=== PATIENT | male | born 1930 | race Caucasian/White ===

== ENCOUNTER 2018-04-18 10:18 | Inpatient (IN) | payer OTHER ==
[~2018-04-18] VITALS: Ht 198.1 cm; Wt 106.6 kg
[2018-04-18] VITALS (7 sets, daily range): BP systolic 107–167
[~2018-04-18 10:18] MED LIST: AMLO5TAB4 PO; LEVO500T20 PO; PRAV40TA63 PO
[2018-04-18] MEDS ORDERED: NACL 0.9% 1,000 ML IV ONE (10:35)
--- NOTE | 2018-04-18 10:35 | NUR ---
Patient brought in by family for c/c of shortness of breath and cough. Per patient, cough started on Thursday and worsening overnight. Patient has wheezes bilaterally. Patient able to speak in 5-6 word sentences. Patients at bedside. Patient able to sit calmly. Patient has +2 peripheral pulses on all extremities. Patients skin warm to touch, afebrile at this time. Will continue to follow up and monitor patient for changes in status.
--- NOTE | 2018-04-18 10:35 | NUR ---
Patient to ER bed 2 to gown for evaluation. Side rails up. Report given to Magy DECKER
--- NOTE | 2018-04-18 10:35 | NUR ---
ER at bedside examining patient.
[2018-04-18] MEDS ORDERED: IPRATROPIUM BROM 0.5 MG/2.5 ML VIAL.NEB (ATROVENT) IH ONE (10:45)
[2018-04-18] MEDS ORDERED: ALBUTEROL SULFATE 0.083% 2.5 MG/3 ML VIAL.NEB IH ONE (10:45)
[2018-04-18] MEDS ORDERED: MAGNESIUM SULFATE 50 ML IV ONE (10:45)
[2018-04-18] MEDS ORDERED: NS 1000 ML IV.SOLN IV ONE (10:45)
[2018-04-18] MEDS ORDERED: ASPIRIN 81 MG TAB.CHEW PO ONE (10:45)
--- NOTE | 2018-04-18 10:54 | NUR ---
RT at bedside for breathing treatment.
[2018-04-18 11:03] LABS: HEMOGLOBIN 13.7 g/dL (14.0-18.0); MEAN CORPUSCULAR HEMOGLOBIN 29 pg (27-31); MEAN CORPUSCULAR HGB CONC 33 % (32-36); MEAN CORPUSCULAR VOLUME 88 fL (79.0-98.0); PLATELET COUNT (AUTO) 314 K/uL (130-430); RED BLOOD CELL COUNT(AUTO) 4.78 MIL/uL (4.2-6.2); RED CELL DISTRIBUTION WIDTH 13.8 % (9.0-15.0)
--- NOTE | 2018-04-18 11:08 | NUR ---
Radiology at bedside for exam.
[2018-04-18 11:11] LABS: INR 1.2 (0.80-1.20); PROTHROMBIN TIME 12.4 SECS (9.5-12.5)
[2018-04-18 11:21] LABS: ANION GAP 7 (5-15); CALCIUM 9.5 mg/dL (8.4-11.0); CHLORIDE 106 mmol/L (98-107); CREATININE 1.34 mg/dL (0.55-1.30); GLUCOSE 150 mg/dL (70-99); POTASSIUM 3.7 mmol/L (3.5-5.1); SODIUM SERUM 137 mmol/L (136-145); UREA NITROGEN, BLOOD 24 mg/dL (8-21)
[2018-04-18 11:23] LABS: ATYPICAL LYMPHOCYTES % 2 % (0-0); BASOPHILS % (MANUAL) 0 % (0-2); EOSINOPHILS % (MANUAL) 3 % (0-7); LYMPHOCYTES % (MANUAL) 24 % (20-46); MONOCYTES % (MANUAL) 12 % (0-11)
[2018-04-18 11:25] LABS: ALANINE AMINOTRANSFERASE 34 U/L (12-78); ALBUMIN 3.4 g/dL (3.4-4.8); AMYLASE 65 U/L (0-100); ASPARTATE AMINOTRANSFERASE 16 U/L (10-37); LIPASE 113 U/L (73-393); TOTAL BILIRUBIN 0.5 mg/dL (0.0-1.0)
[2018-04-18] MEDS ORDERED: AZIT-62 PO (11:29)
[2018-04-18] MEDS ORDERED: cefTRIAXone 1 GM IVPB PREMIX 50 ML IV ONE (11:30)
[2018-04-18] MEDS ORDERED: AZITHROMYCIN 250 MG TABLET PO ONE (11:30)
--- NOTE | 2018-04-18 12:56 | NUR ---
Patient will be admitted to care of GUTIERREZ. Admitted to TELEMETRY unit. Will go to room 112A. Summary report printed. Report will be given at bedside.
[2018-04-18] MEDS ORDERED: ONDANSETRON HCL 4 MG/2 ML VIAL IVP PRN (13:00)
[2018-04-18] MEDS ORDERED: ACETAMINOPHEN 325 MG TABLET PO PRN (13:00)
[2018-04-18] MEDS ORDERED: IPRATROPIUM/ALBUTEROL SULFATE 3 ML AMPUL.NEB (DUONEB) INH PRN (13:00)
[2018-04-18] MEDS ORDERED: IPRATROPIUM BROM 0.5 MG/2.5 ML VIAL.NEB (ATROVENT) INH PRN (13:00)
--- NOTE | 2018-04-18 13:08 | NUR ---
Admission Note Received patient from ER with diagnosis of copd exacerbation. Initial Plan of Care discussed-patient verbalized understanding. Family at bedside. Oriented to room, call light, pain management and safety.
[2018-04-18 13:47] LABS: BILIRUBIN,URINE NEGATIVE (NEGATIVE); BLOOD, URINE NEGATIVE (NEGATIVE); CLARITY/URINE CLEAR (CLEAR); COLOR,URINE YELLOW (YELLOW); GLUCOSE,URINE NEGATIVE (NEGATIVE); KETONES,URINE NEGATIVE (NEGATIVE); LEUKOCYTE ESTERASE ,URINE 2+ (NEGATIVE); NITRITE, URINE NEGATIVE (NEGATIVE); PH,URINE 5.5 (5.0-8.0); PROTEIN URINE NEGATIVE (NEGATIVE); UROBILINOGEN,URINE 0.2 (0.2-1.0)
[2018-04-18 13:56] LABS: BACTERIA,URINE FEW /HPF (None Seen); MUCUS,URINE 1+ /LPF (None Seen); RBC,URINE 0-3 /HPF (0-3)
[2018-04-18] MEDS: NACL 0.9% 1,000 ML IV SCH ×2 (15:30→20:57)
[2018-04-18] MEDS: LEVOFLOXACIN 500 MG/D5W 100 ML IV SCH (15:31)
--- NOTE | 2018-04-18 15:58 | NUR ---
Notes patient is resting in bed at this time, no signs of pain or distress noted, will continue to monitor, bed in lowest position, bed alarm on, two side rails up, safety precautions in place, call light within reach, encouraged to use call light.
--- NOTE | 2018-04-18 18:28 | NUR ---
CLOSING NOTE PATIENT RESTING IN BED, ASSISTED PATIENT TO CHANGE GOWN, PATIENT DENIES ANY PAIN OR DISCOMFORT AT THIS TIME, IV PATENT AND INFUSING WELL, ALL NEEDS WERE MET THROUGHOUT SHIFT, WILL ENDORSE REPORT TO ONCOMING NURSE, BED IN LOWEST POSITION, BED ALARM ON, TWO SIDE RAILS UP, SAFETY PRECAUTIONS IN PLACE, CALL LIGHT WITHIN REACH, ENCOURAGED PATIENT TO USE CALL LIGHT.
--- NOTE | 2018-04-18 19:10 | NUR ---
CHANGE OF SHIFT; pt. awake but disoriented when checked, on high fowlers position. on room air, occ. bouts of productive cough noted. IVF infusing via left antecubital with NS @ 75 cc/hr. on fall risk precautions, bed alarm on, side rails up. call light within reach.
[2018-04-18] MEDS: methylPREDNISolone SOD SUCC 40 MG/ML VIAL IVP SCH (20:52)
--- NOTE | 2018-04-18 21:00 | NUR ---
NOTES: due medication given. IV site on left antecubital, wrapped with shelby, pt. keeps bending it.
--- NOTE | 2018-04-18 23:00 | NUR ---
NOTES: pt. checked and was incontinent of urine, du hs care given by PORSCHE Shi, kept dry. repositioned, follows simple commands. IVF patent.
--- NOTE | 2018-04-19 00:30 | NUR ---
NOTES: checked pt. and was sleeping. cardiac pattern unchanged. no shortness of breath.
--- NOTE | 2018-04-19 04:18 | NUR ---
NOTES: pt. incontinent of urine, complete am care done, repositioned. IV patent on left antecubital. condition unchanged. no complaints.
--- NOTE | 2018-04-19 06:00 | NUR ---
NOTES: remain calm and sleeping at his time. IV site rewrapped, came off. IV kept @ 75 cc/hr with NS. condition unchanged. continue to monitor.
--- NOTE | 2018-04-19 06:38 | NUR ---
CLOSING NOTES; fall risk precautions observed, side rails up and bed alarm on, remain confused and disoriented but knows his name. for further care and assistance.
--- NOTE | 2018-04-19 07:20 | NUR ---
endorsed pt. to incoming shift with nurse Baron.
--- NOTE | 2018-04-19 07:51 | NUR ---
INITIAL NOTE PT LAYING IN BED, EYES CLOSED, EVEN RISE AND FALL OF CHEST NOTED. EASY TO AROUSE. A/O X1, FOLLOWS DIRECTIONS, COOPERATIVE. VSS. NORMAL SALINE INFUSING TO LAC AT ORDERED RATE, IV SITE PATENT, NO S/S OF INFILTRATION NOTED. SAFETY PRECAUTIONS IN PLACE, CALL LIGHT WITHIN REACH, SIDE RAILS UP X3, BED ALARM ON. WILL MONITOR PT CLOSELY
[2018-04-19 08:02] VITALS: BP_SYST 148
--- NOTE | 2018-04-19 08:19 | NUR ---
Nutrition Update Cristian Scale 13 noted. Pt admitted for COPD exacerbation Diet: 2gm Na diet BMI: 27.2 kg/m2 RD to follow per nutrition care standards.
[2018-04-19] MEDS: PANTOPRAZOLE SODIUM 40 MG/VIAL (PROTONIX) IVP SCH (09:02)
[2018-04-19] MEDS: methylPREDNISolone SOD SUCC 40 MG/ML VIAL IVP SCH ×2 (09:03→20:42)
[2018-04-19] MEDS: ENOXAPARIN SODIUM 40 MG/0.4 ML SYRINGE SUBCUT SCH (09:03)
[2018-04-19] MEDS: NACL 0.9% 1,000 ML IV SCH (09:14)
--- NOTE | 2018-04-19 09:30 | NUR ---
DR QUIJANO AT BEDSIDE, MADE AWARE OF , ABRIL, REQUEST TO BE CALLED AND UPDATED BY , PROVIDED WITH CELL NUMBER [phone] MD TO CALL .
--- NOTE | 2018-04-19 09:39 | NUR ---
CONSULTATION CALLED REASON FOR CONSULTATION:COPD WAS CONSULT CALLED?Y PERSON WHO WAS NOTIFIED:AIMEE GARCIA NOTIFIED CONSULTING PHYSICIAN:AIMEE GARCIA REVIVAL CLERK SPECIALTY:PULMONARY REVIVAL CLERK PHONE NUMBER:[phone] ORDERING PHYSICIAN:SUSHANT ANDUJAR
--- NOTE | 2018-04-19 10:45 | NUR ---
ROUNDS PT SITTING UP IN BED, WATCHING TV, PT ENCOURAGED TO SLIGHTLY REPOSITION TO AVOID PRESSURE BREAKDOWN, PT FOLLOWS INSTRUCTIONS, DENIES ANY OTHER NEEDS AT THIS TIME, WILL FOLLOW UP
[2018-04-19 12:02] VITALS: BP_SYST 132
--- NOTE | 2018-04-19 12:20 | NUR ---
ROUNDS PT SITTING UP IN BED, WATCHING TV, NO S/S OF ACUTE DISTRESS OR PAIN. PT APPEARS CALM. IVF INFUSING TO LAC AT ORDERED RATE. CALL LIGHT WITHIN REACH, WILL FOLLOW UP
--- NOTE | 2018-04-19 13:20 | NUR ---
IVF CHANGED IVF CHANGED TO 1/2 NS AT 50CC/HR, PT EDUCATED REGARDING NEW IV FLUID. PT SITTING UP IN BED, JUST FINISHED LUNCH, ASSISTED IN OPENING FRUIT CUP AND REST OF TRAY REMOVED. PT DENIES ANY OTHER NEEDS, CALL LIGHT WITHIN REACH
[2018-04-19] MEDS: 0.45% NACL 1,000 ML IV SCH (13:23)
[2018-04-19] MEDS: IPRATROPIUM BROM 0.5 MG/2.5 ML VIAL.NEB (ATROVENT) INH SCH ×2 (13:26→19:44)
[2018-04-19] MEDS: ALBUTEROL SULFATE 0.083% 2.5 MG/3 ML VIAL.NEB INH SCH ×2 (13:26→19:43)
--- NOTE | 2018-04-19 15:50 | NUR ---
IV ANTIBIOTIC HANGED. AT BEDSIDE, UPDATED ON PT STATUS, NEW PULMONARY CONSULT AND BREATHING TREATMENTS, FAMILY VERBALIZED UNDERSTANDING. FAMILY WOULD LIKE TO SPEAK WITH MD, MADE AWARE THAT MD ROUNDED EARLY IN DAY AND MD WAS PROVIDED WITH FOUZIA GAN TO UPDATE ON CARE.
[2018-04-19 16:02] VITALS: BP_SYST 135
[2018-04-19] MEDS: LEVOFLOXACIN 500 MG/D5W 100 ML IV SCH (16:14)
--- NOTE | 2018-04-19 16:20 | NUR ---
DR STEARNS AT BEDSIDE, PT AT BEDSIDE ALSO, FAMILY UPDATED ON PT STATUS AND PLAN OF CARE
--- NOTE | 2018-04-19 18:39 | NUR ---
CLOSING NOTE PT SITTING UP IN BED, WATCHING TV. NO S/S OF ACUTE DISTRESS OR PAIN, BREATHING EVEN AND UNLABORED ON ROOM AIR. IVF 1/2 NS INFUSING TO LAC AT 50CC/HR, IV SITE PATENT AND INTACT, NO S/S OF INFILTRATION NOTED. ALL NEEDS ATTENDED TO THROUGHOUT SHIFT, SAFETY PRECAUTIONS MAINTAINED. CALL LIGHT WITHIN REACH, WILL GIVE REPORT TO FOLLOWING SHIFT.
[2018-04-19 19:14] VITALS: BP_SYST 128
--- NOTE | 2018-04-19 19:14 | NUR ---
Initial Notes Received patient in bed, awake watching TV. No s/s of any distress noted and no s/s of any distress noted. IV noted to L a/c G 20 no infiltrate and good blood return. BUE are strong and BLE are weak. Discuss plan of care with patient and verbalize understanding. Call light in reach, side rails up x3 and bed alarm on. will cont to monitor.
--- NOTE | 2018-04-19 21:11 | NUR ---
Rounds Patient is resting in bed at this time. No c/o pain and no s/s of any distress noted. Call light in reach, will cont to monitor.
--- NOTE | 2018-04-19 23:14 | NUR ---
Rounds Patient is resting comfortably at this time. No c/o pain and no s/s of any distress noted. Call light in reach, will cont to monitor.
[2018-04-20] MEDS: ALBUTEROL SULFATE 0.083% 2.5 MG/3 ML VIAL.NEB INH SCH ×4 (00:01→20:03)
[2018-04-20] MEDS: IPRATROPIUM BROM 0.5 MG/2.5 ML VIAL.NEB (ATROVENT) INH SCH ×4 (00:01→20:04)
--- NOTE | 2018-04-20 01:14 | NUR ---
Rounds Patient is resting comfortably at this time. No c/o pain and no s/s of any distress noted. Reposition for comfort and skin care. Call light in reach, will cont to monitor.
[2018-04-20 01:18] VITALS: BP_SYST 117
--- NOTE | 2018-04-20 03:14 | NUR ---
Rounds Patient is resting at this time. Reposition for circulation and skin care. No c/o pain and no s/s of any distress noted. Call light in reach, bed alarm and side rails up x3 for safety. Will cont to monitor.
[2018-04-20] MEDS: 0.45% NACL 1,000 ML IV SCH (06:02)
--- NOTE | 2018-04-20 06:54 | NUR ---
End of shift Notes Patient is resting comfortably in bed at this time. No c/o pain and no s/s of any distress noted. All needs met and anticipated by noc nurses. Call light in reach, will endorse care to incoming nurse.
--- NOTE | 2018-04-20 07:45 | NUR ---
INITIAL NOTE RECEIVED PATIENT FROM WATER TEAM LEADER. PATIENT AWAKE IN BED. A/OX3. ROOM AIR. NO ACUTE DISTRESS. NO SOB. RESPIRATION EVEN AND UNLABORED. SKIN WARM AND DRY TO TOUCH. IV INTACT AND PATENT. BED IN LOW AND LOCKED POSITION. SIDERAIL UP X3. BED ALARM ON. ALL NEEDS MET. CALL LIGHT IN REACH. CONT TO MONITOR
[2018-04-20 08:00] VITALS: BP_SYST 138
[2018-04-20 08:03] LABS: ANION GAP 7 (5-15); CALCIUM 9.4 mg/dL (8.4-11.0); CHLORIDE 107 mmol/L (98-107); CREATININE 1.32 mg/dL (0.55-1.30); GLUCOSE 136 mg/dL (70-99); POTASSIUM 4.3 mmol/L (3.5-5.1); SODIUM SERUM 140 mmol/L (136-145); UREA NITROGEN, BLOOD 29 mg/dL (8-21)
[2018-04-20] MEDS: PANTOPRAZOLE SODIUM 40 MG/VIAL (PROTONIX) IVP SCH (08:53)
[2018-04-20] MEDS: methylPREDNISolone SOD SUCC 40 MG/ML VIAL IVP SCH (08:54)
[2018-04-20] MEDS: ENOXAPARIN SODIUM 40 MG/0.4 ML SYRINGE SUBCUT SCH (08:55)
--- NOTE | 2018-04-20 09:00 | NUR ---
MEDS ALL DUE MEDS ADMINISTERED ORDERED, PHYLLIS WELL. ALL NEEDS MET. CALL LIGHT IN REACH. CONT TO MONITOR
--- NOTE | 2018-04-20 10:20 | NUR ---
SEEN AND EXAMINED BY DR. BAUTISTA AT BEDSIDE. CONT TO MONITOR
[2018-04-20 12:00] VITALS: BP_SYST 125
--- NOTE | 2018-04-20 12:45 | NUR ---
NOTES PATIENT SITTING UP FOR LUNCH. VITAL SIGN STABLE. ALL NEEDS MET. CALL LIGHT IN REACH. CONT TO MONITOR
--- NOTE | 2018-04-20 14:00 | NUR ---
SPOKE TO , PULRI, TO SEE IF PATIENT IS CLEARED FOR DISCHARGE. STATED PATIENT IS OKAY TO BE DISCHARGED HOME. WILL NOTIFY
--- NOTE | 2018-04-20 15:07 | NUR ---
NOTE PATIENT SITTING UP IN BED. DOES NOT WANT TV ON AT THIS TIME. ALL NEEDS MET. CALL LIGHT IN REACH. CONT TO MONITOR.
[2018-04-20 16:14] VITALS: BP_SYST 128
--- NOTE | 2018-04-20 16:30 | NUR ---
SPOKE TO ON PHONE. REPORTED TO THAT PATIENT IS CLEARED BY TO BE DISCHARGED. ASKED WHERE PATIENT IS FROM. RESPONDED THAT PATIENT IS FROM AN ASSISTED LIVING. STATED HE WILL COME SEE AND DISCHARGE THE PATIENT.
--- NOTE | 2018-04-20 17:00 | NUR ---
IV RE-INSERTION: Patient pulled out IV. Restarted on RAC, 22G; patient alonzo well. Successful after x2 attempts. IV flushes freely with good blood return. Will observe for any signs of infiltration. Cont to monitor
[2018-04-20] MEDS: LEVOFLOXACIN 500 MG/D5W 100 ML IV SCH (17:16)
--- NOTE | 2018-04-20 18:30 | NUR ---
CLOSING NOTE PATIENT SITTING UP IN BED. EATING DINNER. NO S/SX PAIN. NO ACUTE DISTRESS. NO SOB. SKIN WARM AND DRY TO TOUCH. IV INTACT AND PATENT. PHYLLIS IV FLUID ORDERED. ALL NEEDS MET. BED IN LOW AND LOCKED POSITION. SIDERAIL UPX3. BED ALARM ON. CALL LIGHT IN REACH. CONT TO MONITOR. WILL ENDORSE TO ONCOMING SHIFT.
--- NOTE | 2018-04-20 19:30 | NUR ---
INITIAL NOTES RECEIVED HANDOFF REPORT FROM OFFGOING NURSE AT THE BEDSIDE. PATIENT IS AWAKE AND ALERT, CURRENTLY ATTEMPTING TO GET OUT OF BED. PATIENT HAD A LARGE BOWEL MOVEMENT AND URINARY INCONTINENCE IN BED. REMOVED SOILED LINEN AND PROVIDED INCONTINENCE CARE FOR THE PATIENT. PATIENT IS NOW CLEAN AND DRY, RESTING COMFORTABLY IN BED. NO SOB, NO ACUTE DISTRESS, NO COMPLAINTS OF PAIN AT THIS TIME. BED IS LOCKED, IN THE LOWEST POSITION, 2X SIDE RAILS UP, BED ALARM IS ON. IV SITE IS INTACT, DRESSING CLEAN AND DRY, CURRENTLY INFUSING IVF AT ORDERED RATE, SEE EMAR FOR DETAILS. EXPLAINED PLAN OF CARE TO THE PATIENT. PATIENT VERBALIZED UNDERSTANDING. WILL CONTINUE WITH PLAN OF CARE. Addendum: 04/20/18 at 2231 by Kimberly Vazquez RN CORRECTION* IV SITE IS INTACT, DRESSING CLEAN AND DRY, SALINE LOCKED.
[2018-04-20 20:00] VITALS: BP_SYST 134
[2018-04-20] MEDS: PREDNISONE 20 MG TABLET PO SCH (20:32)
--- NOTE | 2018-04-20 21:25 | NUR ---
PATIENT PULLED OUT HIS IV ON THE RIGHT AC, CATHETER IS INTACT. STARTED NEW IV TO THE LEFT AC #22G, NOW INFUSING IVF AT THE ORDERED RATE, SEE EMAR. PATIENT TOLERATED PROCEDURE WELL. Addendum: 04/20/18 at 2231 by Kimberly Vazquez RN CORRECTION* LEFT AC #22G IS SALINE LOCKED. NO IVF RUNNING AT THIS TIME.
--- NOTE | 2018-04-20 22:36 | NUR ---
PATIENT IS AWAKE, RESTING COMFORTABLY IN BED. NO SOB, NO ACUTE DISTRESS, NO COMPLAINTS OF PAIN AT THIS TIME. BED IS LOCKED, IN THE LOWEST POSITION, 2X SIDE RAILS UP, BED ALARM IS ON. CALL LIGHT IS WITHIN REACH. ENCOURAGED PATIENT TO CALL.
[2018-04-20 23:46] VITALS: BP_SYST 124
--- NOTE | 2018-04-21 00:44 | NUR ---
PATIENT IS ASLEEP, RESTING COMFORTABLY IN BED. NO SOB, NO ACUTE DISTRESS, NO SIGNS OF PAIN OR FACIAL GRIMACING AT THIS TIME. BREATHING IS EVEN AND UNLABORED WITH VISIBLE CHEST RISE AND FALL NOTED. BED IS LOCKED, IN THE LOWEST POSITION, 2X SIDE RAILS UP, BED ALARM IS ON. CALL LIGHT IS WITHIN REACH.
[2018-04-21] MEDS: ALBUTEROL SULFATE 0.083% 2.5 MG/3 ML VIAL.NEB INH SCH ×3 (01:00→13:40)
[2018-04-21] MEDS: IPRATROPIUM BROM 0.5 MG/2.5 ML VIAL.NEB (ATROVENT) INH SCH ×3 (01:00→13:40)
--- NOTE | 2018-04-21 02:02 | NUR ---
PATIENT IS RESTING COMFORTABLY IN BED WITH EYES CLOSED. NO SOB, NO ACUTE DISTRESS, NO SIGNS OF PAIN OR FACIAL GRIMACING AT THIS TIME. BREATHING IS EVEN AND UNLABORED WITH VISIBLE CHEST RISE AND FALL NOTED. BED IS LOCKED, IN THE LOWEST POSITION, 2X SIDE RAILS UP, BED ALARM IS ON. CALL LIGHT IS WITHIN REACH.
--- NOTE | 2018-04-21 04:50 | NUR ---
PATIENT IS RESTING COMFORTABLY IN BED WITH EYES CLOSED. BREATHING IS EVEN AND UNLABORED WITH VISIBLE CHEST RISE AND FALL NOTED. BED IS LOCKED, IN THE LOWEST POSITION, 2X SIDE RAILS UP, BED ALARM IS ON. CALL LIGHT IS WITHIN REACH.
--- NOTE | 2018-04-21 05:53 | NUR ---
PATIENT IS RESTING COMFORTABLY IN BED. NO SOB, NO ACUTE DISTRESS, NO SIGNS OF PAIN OR FACIAL GRIMACING. BREATHING IS EVEN AND UNLABORED WITH VISIBLE CHEST RISE AND FALL NOTED. BED IS LOCKED, IN THE LOWEST POSITION, 2X SIDE RAILS UP, BED ALARM IS ON. CALL LIGHT IS WITHIN REACH.
--- NOTE | 2018-04-21 07:30 | NUR ---
Opening Note patient resting in bed, eyes closed, breathing unlabored on room air, symmetrical chest expansion, safety precautions in place, bedside table and call light left within reach, will continue to monitor
--- NOTE | 2018-04-21 07:30 | NUR ---
CLOSING NOTES RECEIVED HANDOFF REPORT FROM OFFGOING NURSE AT THE BEDSIDE. PATIENT IS ASLEEP, RESTING COMFORTABLY IN BED. NO SOB, NO ACUTE DISTRESS, NO SIGNS OF PAIN OR FACIAL GRIMACING. BREATHING IS EVEN AND UNLABORED WITH VISIBLE CHEST RISE AND FALL NOTED. IV SITE IS INTACT, DRESSING CLEAN AND DRY, SALINE LOCKED. BED IS LOCKED, IN THE LOWEST POSITION, 2X SIDE RAILS UP, BED ALARM IS ON. CALL LIGHT IS WITHIN REACH. FALL AND SAFETY PRECAUTIONS MAINTAINED. ALL NEEDS HAVE BEEN MET DURING THIS SHIFT.
[2018-04-21] MEDS: PANTOPRAZOLE SODIUM 40 MG/VIAL (PROTONIX) IVP SCH (08:18)
[2018-04-21] MEDS: PREDNISONE 20 MG TABLET PO SCH (08:18)
[2018-04-21] MEDS: ENOXAPARIN SODIUM 40 MG/0.4 ML SYRINGE SUBCUT SCH (08:19)
[2018-04-21 08:21] VITALS: BP_SYST 132
--- NOTE | 2018-04-21 08:28 | NUR ---
Medication Administration patient resting in bed, educated him regarding meds, verbalized understanding, tolerated well, IV site patent, he received breathing tx, no signs of SOB at this time, no complaints of pain, educated patient on use of call light for assistance, verbalized understanding, call light and bedside table left within reach, will continue to monitor
--- NOTE | 2018-04-21 09:40 | NUR ---
Dr. Matthesw Rounds informed him Mariann wants to speak to him on the phone, ordered DC home, informed him that he came from [facility] [place] and that feels more comfortable with transfer to SNF, also requested PT eval because patient has not been out of bed since stay here, verbalized understanding
--- NOTE | 2018-04-21 10:15 | NUR ---
Patient Sleeping at this time no signs of distress, breathing unlabored on room air, IV site saline locked, safety precautions remain in place, bedside table and call light left within reach, will continue to monitor
[2018-04-21 11:29] VITALS: BP_SYST 134
--- NOTE | 2018-04-21 12:42 | NUR ---
Patient Resting in Bed at this time, no complaints of pain, educated him about PT scheduled for today, verbalized understanding, safety precautions remain in place, will continue to monitor
--- NOTE | 2018-04-21 13:41 | NUR ---
JOSE CARLOSP. DC TO [facility] [address] T [phone]. [facility]IA [facility] 5 PM SPOKE WITH BLAISE . AGREED WITH JOSE CARLOS. HERNANDEZ SOMMER RN/CM
[2018-04-21 13:48] VITALS: BP_SYST 134
--- NOTE | 2018-04-21 13:58 | NUR ---
Spoke with Mariann over the phone, she is aware that patient is transferring to [facility], patient is aware as well, will get patient ready for transfer Addendum: 04/21/18 at 1424 by Tiny Rodríguez RN Still awaiting MD order for transfer at this time. Juanita Case management stated she will reach out to Dr. Matthews for transfer order
[2018-04-21] MEDS: LEVOFLOXACIN 500 MG/D5W 100 ML IV SCH (14:18)
--- NOTE | 2018-04-21 14:20 | NUR ---
Antibiotics hung at this time, educated patient regarding med, verbalized understanding, site remains patent, patient denies pain at this time, breathing unlabored on room air, safety precautions remain in place, will continue to monitor
[2018-04-21 14:29] VITALS: BP_SYST 134
--- NOTE | 2018-04-21 16:40 | NUR ---
PT TRANSFERRED Report given to Aretha at [facility]. Transfer packet with Transfer Orders and Medication Reconciliation form given to EMT with report. Exitcare provided. [facility] ID band removed, replaced with ID band with pt's name and . IV catheter removed, intact and dressing applied, no active bleeding. All belongings sent with patient. Patient left floor via gurney escorted by EMT in no distress.
== END 2018-04-21 16:40 | DRG 190 ==
LOC: SED 10:18 → STU 12:48 → SMU 04-19 16:07
PROVIDERS: ADMIT Internal Medicine; ATTEND Internal Medicine
DX: J44.1 Chronic obstructive pulmonary disease with (acute) exacerbation (principal); J18.9 Pneumonia, unspecified organism; N39.0 Urinary tract infection, site not specified; J44.0 Chronic obstructive pulmonary disease with (acute) lower respiratory infection; E78.5 Hyperlipidemia, unspecified; F03.90 Unspecified dementia, unspecified severity, without behavioral disturbance, psychotic disturbance, mood disturbance, and anxiety; F32.9 Major depressive disorder, single episode, unspecified; N40.0 Benign prostatic hyperplasia without lower urinary tract symptoms; I12.9 Hypertensive chronic kidney disease with stage 1 through stage 4 chronic kidney disease, or unspecified chronic kidney disease; N18.9 Chronic kidney disease, unspecified; Z87.891 Personal history of nicotine dependence; Z79.899 Other long term (current) drug therapy; Z87.440 Personal history of urinary (tract) infections
CPT/HCPCS: 36415; 36600; 71045; 80048; 80053; 81000-TC; 82150-TC; 82550-TC; 82803-TC; 83605; 83690-TC; 84484; 85007; 85027; 85610-TC; 85730-TC; 87040-TC; 87086; 93005; 94640; 94760; 96365; 96366; 96367; 99285; C9113; J0696; J1030; J1650; J1956; J3475; J7030; J7512; J7613; Q0144

== ENCOUNTER 2019-02-09 16:54 | Inpatient (IN) | payer OTHER ==
[~2019-02-09] VITALS: Ht 198.1 cm; Wt 88.9 kg
[~2019-02-09 16:54] MED LIST changes: -LEVO500T20 PO
--- NOTE | 2019-02-09 16:54 | NUR ---
BROUGHT BACK TO BED #1 VIA WHEELCHAIR, [facility], PT TO BED #1, TRIAGED AND REPORT GIVEN TO YOLANDA
--- NOTE | 2019-02-09 16:55 | NUR ---
ER Dr. Waters at bedside examining patient.
--- NOTE | 2019-02-09 16:58 | NUR ---
Pt AAOx4 presents to ED via wheelchair c/o increased weakness, lethargy, and uncontrollable diarrhea today. Pt reports he has had diarrhea x 3 weeks, but today is "the worst." Denies pain at the moment. Currently on antibiotics for recurrent UTI's. No other injuries/complaints per pt/noted. at bedside. Will continue to monitor.
[2019-02-09 17:00] VITALS: BP_SYST 142
[2019-02-09] MEDS ORDERED: NS 500 ML IV ONE (17:30)
[2019-02-09] MEDS ORDERED: metroNIDAZOLE 500 mg/NS 100 ML IV ONE ×2 (17:30→21:31)
[2019-02-09] MEDS ORDERED: VANCOMYCIN HCL 1,000 MG in D5W 250 ML IV ONE (17:30)
[2019-02-09] MEDS ORDERED: VANCOMYCIN HCL 1000 MG/VIAL IV ONE (17:34)
[2019-02-09 17:56] LABS: ANION GAP 7 (5-15); CALCIUM 9.9 mg/dL (8.4-11.0); CHLORIDE 108 mmol/L (98-107); CREATININE 1.09 mg/dL (0.55-1.30); GLUCOSE 139 mg/dL (70-99); SODIUM SERUM 141 mmol/L (136-145); UREA NITROGEN, BLOOD 17 mg/dL (8-21)
[2019-02-09 17:58] LABS: INR 1.2 (0.80-1.20); PROTHROMBIN TIME 11.8 SECS (9.5-12.5)
[2019-02-09 18:01] LABS: ALANINE AMINOTRANSFERASE 32 U/L (12-78); ALBUMIN 3.5 g/dL (3.4-4.8); ASPARTATE AMINOTRANSFERASE 20 U/L (10-37); TOTAL BILIRUBIN 0.3 mg/dL (0.0-1.0)
--- NOTE | 2019-02-09 18:08 | NUR ---
Critical lab value called by Lizabeth woven label designer. MD Waters informed.
[2019-02-09 18:09] LABS: POTASSIUM 2.9 mmol/L (3.5-5.1)
[2019-02-09 18:12] LABS: BASOPHILS % (AUTO) 0.4 % (0.0-2.0); EOSINOPHILS # (AUTO) 0.2 K/uL (0.0-0.4); EOSINOPHILS % (AUTO) 2.6 % (0.0-4.0); HEMATOCRIT 42.1 % (36-54); HEMOGLOBIN 13.8 g/dL (14.0-18.0); LYMPHOCYTES # (AUTO) 3.2 K/uL (1.0-5.5); LYMPHOCYTES % (AUTO) 38.4 % (20.5-51.5); MEAN CORPUSCULAR HEMOGLOBIN 29 pg (27-31); MEAN CORPUSCULAR HGB CONC 33 % (32-36); MEAN CORPUSCULAR VOLUME 88 fL (79.0-98.0); MONOCYTES # (AUTO) 0.6 K/uL (0.0-1.0); MONOCYTES % (AUTO) 7.2 % (1.7-9.3); NEUTROPHILS # (AUTO) 4.2 K/uL (1.8-7.7); NEUTROPHILS % (AUTO) 51.4 % (40.0-70.0); PLATELET COUNT (AUTO) 300 K/uL (130-430); RED BLOOD CELL COUNT(AUTO) 4.78 MIL/uL (4.2-6.2); RED CELL DISTRIBUTION WIDTH 13.8 % (9.0-15.0); WHITE BLOOD COUNT (AUTO) 8.2 K/uL (4.8-10.8)
[2019-02-09] MEDS ORDERED: POTASSIUM CHLORIDE 20 MEQ TAB.PRT.SR PO ONE (18:30)
--- NOTE | 2019-02-09 19:00 | NUR ---
Perineal care performed. PT tolerated well, assisted to position of comfort.
--- NOTE | 2019-02-09 19:39 | NUR ---
Patient will be admitted to care of [facility]. Admitted to Medsurg unit. Will go to room 132C. Summary report printed. Report will be given at bedside.
[2019-02-09] MEDS ORDERED: Lomotil PO (19:57)
[2019-02-09] MEDS ORDERED: APIX5TAB4 PO (19:57)
[2019-02-09] MEDS ORDERED: DONE10TA37 PO (19:57)
[2019-02-09] MEDS ORDERED: ESCI10TA PO (19:57)
--- NOTE | 2019-02-09 19:58 | NUR ---
Medication reconciliation completed with information provided by . Any prior medication reconciliation on file was reviewed and corrected.
--- NOTE | 2019-02-09 20:01 | NUR ---
End of life care decisions discussed with patient by Dr. Flores. Opportunity for questions and concerns addressed. Patient's code status is MODIFIED CODE, ONLY CHEST COMPRESSIONS AND ACLS DRUGS paperwork completed and placed in chart.
--- NOTE | 2019-02-09 20:02 | NUR ---
Patient will be admitted to care of [facility]. Admitted to Medsurg unit. Will go to room 132C. Summary report printed. Report will be given at bedside.
--- NOTE | 2019-02-09 20:30 | NUR ---
ADMISSION: The patient, PAKO PATEL, 88 y/o, M admitted by DAYNA LOMELI MD,with the diagnosis of Colitis , to room 132 C , at bedside was given written information regarding hospital policies, unit procedures and contact persons. Addendum: 02/09/19 at 2113 by Darshan Bonds RN late entry pt admitted to floor at [facility] was with another pt
[2019-02-09 20:37] VITALS: BP_SYST 116
--- NOTE | 2019-02-09 21:13 | NUR ---
PHARMACY CALLED ; PT HAS AN ORDER FOR FLAGYL 250 MG IVPB Q8HRS , NOTICED THAT THIS ORDER WAS CHANGED ITS STARTING TIME TO 0600 AM 02/10/19 BY PHARMACY . CALLED OUTSIDE PHARMACIST, TALKED WITH VIDHI PHARMACIST , PER PHARMACIST , SINCE PT RECEIVED A DOSE OF 500 MG OF FLAGYL IN ER AROUND 1730 , BECAUSE OF PTS AGE PT ONLY NEEDS 25O MG AND OK TO GIVE NEXT DOSE IN AM AT 0600 . NOTIFIED HOUSE SUP AND PRIMARY RN
[2019-02-09] MEDS ORDERED: NACL 0.9% 1,000 ML IV SCH (22:22)
--- NOTE | 2019-02-09 22:27 | NUR ---
RN ROUNDS Patient resting quietly in bed, in no distress, denies any pain or discomfort, repositioned with pillow support, call light within reach, safety measures in place, will monitor.
[2019-02-09] MEDS ORDERED: MORPHINE 2 MG/ML INJ. SYRINGE IVP PRN (22:30)
[2019-02-09] MEDS ORDERED: ALBUTEROL SULFATE 0.083% 2.5 MG/3 ML VIAL.NEB INH PRN (22:30)
[2019-02-09] MEDS ORDERED: ACETAMINOPHEN 325 MG TABLET PO PRN (22:30)
[2019-02-09] MEDS ORDERED: POTASSIUM CHLORIDE 20 MEQ/PKT PACKET PO ONE (22:45)
[2019-02-09 22:55] VITALS: BP_SYST 116
[2019-02-09] MEDS ORDERED: cefTRIAXone 1 GM IVPB PREMIX 50 ML IV SCH (23:00)
[2019-02-09] MEDS ORDERED: cefTRIAXone 1 GM IVPB PREMIX 50 ML IV ONE (23:33)
[2019-02-09 23:45] VITALS: BP_SYST 111
--- NOTE | 2019-02-10 00:06 | NUR ---
RN ROUNDS Patient awake, denies any pain or discomfort at this time, vital signs stable, due medications administered, started on IVF per MD order, IV line to right ac intact and patent. Patient repositioned with pillow, call light remains within reach, will monitor.
--- NOTE | 2019-02-10 00:24 | NUR ---
RN ROUNDS Patient resting quietly in bed, in no distress, denies any pain or discomfort, IVF ongoing, repositioned with pillow support, call light within reach, safety measures in place, will monitor.
--- NOTE | 2019-02-10 02:45 | NUR ---
RN ROUNDS Patient awake, denies any pain or discomfort, repositioned with pillow support, call light within reach, safety measures in place, will monitor.
[2019-02-10] MEDS ORDERED: metroNIDAZOLE 250 mg/NS 50 ML IV SCH (06:00)
--- NOTE | 2019-02-10 06:28 | NUR ---
RN ROUNDS Patient resting quietly in bed, in no distress, denies any pain or discomfort, due antibiotics administered, repositioned with pillow support, call light within reach, safety measures maintained will monitor until endorsed to day nurse.
[2019-02-10 06:53] LABS: ALANINE AMINOTRANSFERASE 24 U/L (12-78); ALBUMIN 2.8 g/dL (3.4-4.8); ANION GAP 5 (5-15); ASPARTATE AMINOTRANSFERASE 16 U/L (10-37); CALCIUM 9.5 mg/dL (8.4-11.0); CHLORIDE 110 mmol/L (98-107); CREATININE 0.98 mg/dL (0.55-1.30); GLUCOSE 96 mg/dL (70-99); POTASSIUM 3.8 mmol/L (3.5-5.1); SODIUM SERUM 143 mmol/L (136-145); TOTAL BILIRUBIN 0.5 mg/dL (0.0-1.0); UREA NITROGEN, BLOOD 14 mg/dL (8-21)
[2019-02-10 07:05] LABS: BASOPHILS % (AUTO) 0.4 % (0.0-2.0); EOSINOPHILS # (AUTO) 0.3 K/uL (0.0-0.4); EOSINOPHILS % (AUTO) 3.2 % (0.0-4.0); HEMATOCRIT 36.6 % (36-54); HEMOGLOBIN 12.1 g/dL (14.0-18.0); LYMPHOCYTES # (AUTO) 4.9 K/uL (1.0-5.5); MEAN CORPUSCULAR HEMOGLOBIN 29 pg (27-31); MEAN CORPUSCULAR HGB CONC 33 % (32-36); MEAN CORPUSCULAR VOLUME 89 fL (79.0-98.0); MONOCYTES # (AUTO) 0.8 K/uL (0.0-1.0); NEUTROPHILS % (AUTO) 33.4 % (40.0-70.0); PLATELET COUNT (AUTO) 250 K/uL (130-430); RED CELL DISTRIBUTION WIDTH 14.1 % (9.0-15.0)
--- NOTE | 2019-02-10 07:15 | NUR ---
received report at the bedside. patient alert awake x 2-3. passive and quite. breathing even and unlabored. lungs bilaterally clear. abdomen soft and non distended. has iv access on the right ac #20 with normal saline at 55cc/hr infusing on well. resting and quite. no complained made. bed low position, alarmed and locked. call lights within reach. will continue to monitor patients status. fall and safety precaution maintained.
[2019-02-10 08:24] VITALS: BP_SYST 136
[2019-02-10] MEDS: amLODIPine BESYLATE 5 MG TABLET PO SCH (08:31)
[2019-02-10] MEDS: APIXABAN 2.5 MG TABLET PO SCH ×2 (08:34→21:21)
[2019-02-10] MEDS ORDERED: metroNIDAZOLE 500 MG TABLET PO ONE (10:15)
--- NOTE | 2019-02-10 10:16 | NUR ---
Nutrition Update Cristian Scale 16 noted. Pt admitted for colitis Diet: Full liquid BMI: 22.8kg/m2 RD to follow per nutrition care standards.
--- NOTE | 2019-02-10 11:55 | NUR ---
patient quite and resting no complained made so far.
--- NOTE | 2019-02-10 14:18 | NUR ---
Dietitian Recommendations * Recommend continuing full liquid diet (ONS Ensure Enlive TID comes standard w/ current diet; provides 1050 kcal/day, 60 gm protein/day) * Consider advance to regular diet w/ Ensure Enlive TID if/when medically appropriate LP, RD Please refer to Nutrition Assessment for details. Addendum: 02/10/19 at [address] Amended: Links added.
[2019-02-10] MEDS: metroNIDAZOLE 500 MG TABLET PO SCH ×2 (15:41→21:19)
--- NOTE | 2019-02-10 15:41 | NUR ---
flagyl 500 mg po given. made comfortable
[2019-02-10] MEDS: cefTRIAXone 1 GM IVPB PREMIX 50 ML IV SCH (15:42)
[2019-02-10 15:49] VITALS: BP_SYST 143
--- NOTE | 2019-02-10 16:00 | NUR ---
nguyen came and see the patient. no complained made so far.
[2019-02-10 17:00] VITALS: BP_SYST 150
--- NOTE | 2019-02-10 18:02 | NUR ---
patient eating dinner. stable. verbalized he is hungry.
--- NOTE | 2019-02-10 19:13 | NUR ---
sbar report given to Heather DECKER
--- NOTE | 2019-02-10 19:50 | NUR ---
PM SHIFT ASSESSMENT Patient awake, aox2, on room air, in no distress, vital signs stable, denies any pain or discomfort at this time, plan of care discussed with patient, patient compliant. Patient repositioned with pillow, oriented to use call light, safety and fall precautions in place, will monitor.
[2019-02-10 20:00] VITALS: BP_SYST 124
--- NOTE | 2019-02-10 21:30 | NUR ---
MED PASS Patient awake, due medications administered, tolerated well, IV line intact and patent, saline locked, patient repositioned for comfort.
--- NOTE | 2019-02-10 22:30 | NUR ---
RN ROUNDS Patient resting quietly in bed, in no distress, denies any pain or discomfort, made comfortable, call light within reach, safety measures in place, will monitor.
--- NOTE | 2019-02-11 00:02 | NUR ---
RN ROUNDS Patient awake, denies any pain or discomfort, vital signs stable. Incontinence care provided, linens an gown changed, patient had small bm, unable to collect stool specimen, repositioned with pillow support, call light within reach, safety measures in place.
[2019-02-11 01:07] VITALS: BP_SYST 130
--- NOTE | 2019-02-11 02:15 | NUR ---
RN ROUNDS Patient asleep, respirations even and unlabored, safety measures in place, call light remains within reach, will monitor.
--- NOTE | 2019-02-11 04:35 | NUR ---
RN ROUNDS Patient asleep, respirations even and unlabored, safety measures in place, call light remains within reach, will monitor.
[2019-02-11] MEDS: metroNIDAZOLE 500 MG TABLET PO SCH ×3 (05:42→21:11)
[2019-02-11 06:11] LABS: BASOPHILS % (AUTO) 0.5 % (0.0-2.0); EOSINOPHILS # (AUTO) 0.3 K/uL (0.0-0.4); EOSINOPHILS % (AUTO) 4.1 % (0.0-4.0); HEMATOCRIT 36.3 % (36-54); LYMPHOCYTES # (AUTO) 3.7 K/uL (1.0-5.5); LYMPHOCYTES % (AUTO) 48.8 % (20.5-51.5); MEAN CORPUSCULAR HEMOGLOBIN 29 pg (27-31); MEAN CORPUSCULAR HGB CONC 33 % (32-36); MEAN CORPUSCULAR VOLUME 88 fL (79.0-98.0); MONOCYTES # (AUTO) 0.8 K/uL (0.0-1.0); MONOCYTES % (AUTO) 11.1 % (1.7-9.3); NEUTROPHILS # (AUTO) 2.7 K/uL (1.8-7.7); NEUTROPHILS % (AUTO) 35.5 % (40.0-70.0); PLATELET COUNT (AUTO) 261 K/uL (130-430); RED BLOOD CELL COUNT(AUTO) 4.14 MIL/uL (4.2-6.2); RED CELL DISTRIBUTION WIDTH 13.6 % (9.0-15.0); WHITE BLOOD COUNT (AUTO) 7.6 K/uL (4.8-10.8)
--- NOTE | 2019-02-11 06:38 | NUR ---
RN ROUNDS Patient resting quietly in bed, denies any pain or discomfort at this time, due antibiotics administered, incontinence care provided, repositioned for comfort, call light remains within reach, safety measures maintained, will monitor until report given to am nurse.
[2019-02-11 06:57] LABS: ALANINE AMINOTRANSFERASE 21 U/L (12-78); ALBUMIN 2.7 g/dL (3.4-4.8); ASPARTATE AMINOTRANSFERASE 15 U/L (10-37); CHLORIDE 111 mmol/L (98-107); CREATININE 0.94 mg/dL (0.55-1.30); GLUCOSE 91 mg/dL (70-99); SODIUM SERUM 146 mmol/L (136-145); TOTAL BILIRUBIN 0.4 mg/dL (0.0-1.0); UREA NITROGEN, BLOOD 10 mg/dL (8-21)
[2019-02-11 07:06] LABS: ANION GAP 8 (5-15)
--- NOTE | 2019-02-11 08:00 | NUR ---
ASSUMPTION OF CARE: RECEIVED PT A/A/OX3, WITH NO C/O PAIN OR DISCOMFORT, DX:RISK FOR FLUID VOLUME DEFICIT, R/T COLITIS. PT TAKING FLUIDS ORALLY , VSS, NO S/S OF DISTRESS, AFEBRILE, NO DIARRHEA NOTED AT THIS TIME, IV SITE INTACT, PATENT, NO REDNESS OR SWELLING, ORIENTED TO UNIT, CALL LIGHT PLACED WITHIN REACH, ROOM CLOSE TO NURSES STATION, WILL CON'T TO MONITOR AND ASSESS.
[2019-02-11 08:04] VITALS: BP_SYST 136
[2019-02-11] MEDS: amLODIPine BESYLATE 5 MG TABLET PO SCH (08:17)
[2019-02-11] MEDS: APIXABAN 2.5 MG TABLET PO SCH ×2 (08:19→21:12)
--- NOTE | 2019-02-11 08:30 | NUR ---
MASCARA MOLDER: MORNING MEDS GIVEN, PER ORDERED BY Seven, TOLERATED WELL, WILL CON'T TO MONITOR AND ASSESS, CON'T WITH POC.
[2019-02-11] MEDS ORDERED: METR500T PO (11:11)
--- NOTE | 2019-02-11 12:00 | NUR ---
NURSES NOTES: PT REMAINS STABLE, NO S/S OF DISTRESS, ADVANCED DIET TO SOFT MECHANICAL, TOLERATING WELL, CALL LIGHT PLACED WITHIN REACH, WILL CON'T TO MONITOR AND ASSESS.
[2019-02-11 13:43] VITALS: BP_SYST 130
[2019-02-11] MEDS: cefTRIAXone 1 GM IVPB PREMIX 50 ML IV SCH (14:56)
--- NOTE | 2019-02-11 15:00 | NUR ---
NURSES NOTES: PT HAS NO SIGNIFICANT CHANGES NOTED AT THIS TIME, APPEARS STABLE, A/A/OX3, IV SITE WNL, NO DISTRESS, CALL LIGHT WITHIN REACH, WILL CON'T TO MONITOR AND ASSESS.
--- NOTE | 2019-02-11 15:59 | NUR ---
received report from Carolyn DECKER. patient aaox 3. resting and sleeping right now. breathing even and unlabored. abdomen soft and non distended. has iv access w/iv fluids on infusing on well. bed in low position, alarmed and locked. call lights within reach. will continue to monitor patients status.
[2019-02-11 16:04] LABS: BILIRUBIN,URINE NEGATIVE (NEGATIVE); COLOR,URINE YELLOW (YELLOW); GLUCOSE,URINE NEGATIVE (NEGATIVE); KETONES,URINE TRACE (NEGATIVE); LEUKOCYTE ESTERASE ,URINE 3+ (NEGATIVE); NITRITE, URINE NEGATIVE (NEGATIVE); PH,URINE 5.5 (5.0-8.0); PROTEIN URINE NEGATIVE (NEGATIVE); UROBILINOGEN,URINE 0.2 (0.2-1.0)
[2019-02-11 16:12] VITALS: BP_SYST 138
[2019-02-11 16:18] LABS: BLOOD, URINE TRACE (NEGATIVE); CLARITY/URINE SLIGHTLY CLOUDY (CLEAR)
[2019-02-11 16:19] LABS: BACTERIA,URINE MODERATE /HPF (None Seen); MUCUS,URINE None Seen /LPF (None Seen); RBC,URINE 0-3 /HPF (0-3); WBC,URINE >100 /HPF (0-3)
--- NOTE | 2019-02-11 17:15 | NUR ---
dr cadet called for result of urine result and its positive for bacteria and possible d/c today. awaiting to call back.
--- NOTE | 2019-02-11 17:40 | NUR ---
Kami left at this time. and refused to let her go discharge tonite. dr cadet made aware.
--- NOTE | 2019-02-11 18:31 | NUR ---
dr cadet called back and ordered Rocephin 1 gm iv x one now. no discharge order yet
--- NOTE | 2019-02-11 18:32 | NUR ---
has prescription on the chart.
[2019-02-11 19:55] VITALS: BP_SYST 125
--- NOTE | 2019-02-11 19:55 | NUR ---
INITIAL NOTE AT INITIAL ASSESSMENT, PATIENT IS RESTING IN BED, STABLE, NO SIGNS OF RESPIRATORY DISTRESS. HE IS CONFUSED BUT VERBALIZES NO PAIN. PLAN OF CARE FOR THE EVENING IS COMMUNICATED WITH THE PATIENT. BED IS LOCKED, ALARMED, AND AT THE LOWEST LEVEL. FALL AND SAFETY ISOLATION PRECAUTIONS WILL BE TAKEN THROUGHOUT THE SHIFT.
[2019-02-11] MEDS ORDERED: cefTRIAXone 1 GM VIAL ONE (20:27)
[2019-02-12 00:16] VITALS: BP_SYST 118
[2019-02-12] MEDS: metroNIDAZOLE 500 MG TABLET PO SCH ×3 (06:13→22:13)
--- NOTE | 2019-02-12 06:31 | NUR ---
CLOSING NOTE AT THIS TIME, PATIENT IS RESTING IN BED, STABLE, NO SIGNS OF RESPIRATORY DISTRESS. CALL LIGHT IS WITHIN REACH. BED IS LOCKED, ALARMED, AND AT THE LOWEST LEVEL. FALL, SAFETY, AND ISOLATION PRECAUTIONS HAVE BEEN IN PLACE THROUGHOUT THE SHIFT. WILL CONTINUE TO MONITOR UNTIL SHIFT REPORT IS GIVEN AT BEDSIDE TO AM NURSE.
[2019-02-12 08:00] VITALS: BP_SYST 146
--- NOTE | 2019-02-12 08:30 | NUR ---
INTERNET SALES CONSULTANT: MORNING MEDS GIVEN, PER ORDERED BY [employer], TOLERATED WELL, WILL CON'T TO MONITOR AND ASSESS, CON'T WITH POC.
[2019-02-12] MEDS: amLODIPine BESYLATE 5 MG TABLET PO SCH (08:32)
[2019-02-12] MEDS: APIXABAN 2.5 MG TABLET PO SCH ×2 (08:33→22:18)
--- NOTE | 2019-02-12 08:45 | NUR ---
VISIT: AT BEDSIDE FOR ASSESSMENT OF PT, NEW ORDERS GIVEN, WILL CON'T TO MONITOR AND ASSESS.
--- NOTE | 2019-02-12 09:17 | NUR ---
CONSULTATION PAGED/CALLED Reason for Consultation: lung nodule Person Who was Notified: [place] Consulting Physician: /DR. DUNN CREATIVE TECHNOLOGIST Inspector Eyeglass Frames Specialty: NETWORK SUPPORT ANALYST Ordering Physician: DR. GUTIERREZ
--- NOTE | 2019-02-12 10:45 | NUR ---
RADIOLOGY: PT OFF UNIT, IN STABLE CONDITION, VIA GURNEY TO RADIOLOGY FOR ORDERED CT SCAN OF CHEST, R/T PRODUCTIVE COUGH, PER ORDERED BY [employer].
[2019-02-12] MEDS: AZITHROMYCIN 250 MG TABLET PO SCH (11:17)
[2019-02-12] MEDS: cefTRIAXone 1 GM IVPB PREMIX 50 ML IV SCH (11:18)
[2019-02-12] MEDS: ALBUTEROL SULFATE 0.083% 2.5 MG/3 ML VIAL.NEB INH SCH ×4 (11:21→23:35)
[2019-02-12 11:44] VITALS: BP_SYST 138
--- NOTE | 2019-02-12 12:00 | NUR ---
NURSES NOTES: PT A/A/OX3, WITH AT BEDSIDE ASSIST FEEDING LUNCH MEAL TO PT, DISCUSSED PT'S CURRENT NUTRITIONAL BEHAVIORS, NO DIARRHEA NOTED, HAS DECREASED APPETITE MOST OF THE TIME, PT PRESENTLY COMPLIANT WITH MEAL CONSUMPTION, AND MEDICATIONS, ORIENTED TO CALL LIGHT, ROOM CLOSE TO NURSES STATION, WILL CON'T TO MONITOR AND ASSESS.
[2019-02-12 15:49] VITALS: BP_SYST 117
--- NOTE | 2019-02-12 18:00 | NUR ---
END OF SHIFT: PT REMAINS STABLE, NO DIARRHEA OR BM NOTED THROUGHOUT SHIFT, TOLERATING DIET, NO INDICATION OF PAIN OR DISCOMFORT, WILL CON'T TO MONITOR AND ENDORSE TO NEXT SHIFT.
[2019-02-12 20:00] VITALS: BP_SYST 121
--- NOTE | 2019-02-12 20:00 | NUR ---
INITIAL NOTE AT INITIAL ASSESSMENT, PATIENT IS RESTING IN BED, STABLE, NO SIGNS OF RESPIRATORY DISTRESS. PATIENT VERBALIZES NO PAIN. PLAN OF CARE FOR THE EVENING IS COMMUNICATED WITH THE PATIENT. BED IS LOCKED, ALARMED, AND AT THE LOWEST LEVEL. FALL, SAFETY, AND RESPIRATORY PRECAUTIONS WILL BE TAKEN THROUGHOUT THE SHIFT.
[2019-02-13 00:25] VITALS: BP_SYST 120
[2019-02-13] MEDS: ALBUTEROL SULFATE 0.083% 2.5 MG/3 ML VIAL.NEB INH SCH ×5 (03:00→23:34)
[2019-02-13] MEDS: metroNIDAZOLE 500 MG TABLET PO SCH ×3 (06:08→22:08)
--- NOTE | 2019-02-13 06:35 | NUR ---
CLOSING NOTE PATIENT SLEPT WELL THROUGHOUT THE SHIFT. AT THIS TIME, PATIENT IS RESTING IN BED, STABLE, NO SIGNS OF RESPIRATORY DISTRESS. BED IS LOCKED, ALARMED, AND AT THE LOWEST LEVEL. FALL AND SAFETY PRECAUTIONS HAVE BEEN IN PLACE THROUGHOUT THE SHIFT. WILL CONTINUE TO MONITOR UNTIL SHIFT REPORT IS GIVEN AT BEDSIDE TO AM NURSE.
[2019-02-13 06:39] LABS: BASOPHILS # (AUTO) 0.1 K/uL (0.0-0.2); BASOPHILS % (AUTO) 0.7 % (0.0-2.0); EOSINOPHILS # (AUTO) 0.2 K/uL (0.0-0.4); EOSINOPHILS % (AUTO) 2.5 % (0.0-4.0); HEMATOCRIT 34.7 % (36-54); HEMOGLOBIN 11.5 g/dL (14.0-18.0); LYMPHOCYTES # (AUTO) 3.5 K/uL (1.0-5.5); LYMPHOCYTES % (AUTO) 49.9 % (20.5-51.5); MEAN CORPUSCULAR HEMOGLOBIN 29 pg (27-31); MEAN CORPUSCULAR HGB CONC 33 % (32-36); MEAN CORPUSCULAR VOLUME 87 fL (79.0-98.0); MONOCYTES # (AUTO) 0.8 K/uL (0.0-1.0); MONOCYTES % (AUTO) 12.1 % (1.7-9.3); NEUTROPHILS # (AUTO) 2.4 K/uL (1.8-7.7); NEUTROPHILS % (AUTO) 34.8 % (40.0-70.0); PLATELET COUNT (AUTO) 256 K/uL (130-430); RED BLOOD CELL COUNT(AUTO) 3.98 MIL/uL (4.2-6.2); RED CELL DISTRIBUTION WIDTH 13.4 % (9.0-15.0)
[2019-02-13 07:11] LABS: ALANINE AMINOTRANSFERASE 16 U/L (12-78); ALBUMIN 2.7 g/dL (3.4-4.8); ANION GAP 4 (5-15); ASPARTATE AMINOTRANSFERASE 14 U/L (10-37); CALCIUM 9.2 mg/dL (8.4-11.0); CHLORIDE 107 mmol/L (98-107); CREATININE 1.16 mg/dL (0.55-1.30); GLUCOSE 111 mg/dL (70-99); POTASSIUM 3.5 mmol/L (3.5-5.1); SODIUM SERUM 141 mmol/L (136-145); TOTAL BILIRUBIN 0.4 mg/dL (0.0-1.0); UREA NITROGEN, BLOOD 16 mg/dL (8-21)
[2019-02-13 08:00] VITALS: BP_SYST 108; BP_SYST 115
[2019-02-13] MEDS: AZITHROMYCIN 250 MG TABLET PO SCH (08:45)
[2019-02-13] MEDS: amLODIPine BESYLATE 5 MG TABLET PO SCH (08:46)
[2019-02-13] MEDS: APIXABAN 2.5 MG TABLET PO SCH ×2 (08:48→22:08)
--- NOTE | 2019-02-13 09:00 | NUR ---
METER CHANGES RECORDS CLERK: MORNING MEDS GIVEN, PER ORDERED BY [facility], TOLERATED WELL, WILL CON'T TO MONITOR AND ASSESS, CON'T WITH POC.
[2019-02-13] MEDS: cefTRIAXone 1 GM IVPB PREMIX 50 ML IV SCH (11:41)
--- NOTE | 2019-02-13 11:42 | NUR ---
Home health Order: Informed [facility] ([phone]) that patient has dc home with home health order.
[2019-02-13] MEDS ORDERED: CEPH250C PO (11:50)
[2019-02-13] MEDS ORDERED: DOCU-144 PO (11:53)
[2019-02-13] MEDS ORDERED: ALBU8.5H8 INH (11:53)
--- NOTE | 2019-02-13 12:00 | NUR ---
NURSES NOTES: PT A/A/OX1, ASSISTED WITH FEEDING OF LUNCH MEAL TO PT, NO DIARRHEA NOTED, PT CONSUMED 80% OF MEAL, AND IS TOLERATING WELL, ORIENTED TO CALL LIGHT, ROOM CLOSE TO NURSES STATION, WILL CON'T TO MONITOR AND ASSESS.
[2019-02-13 13:25] VITALS: BP_SYST 109
--- NOTE | 2019-02-13 13:45 | NUR ---
DISCHARGE: PT HAS ORDER FOR DISCHARGE HOME, WAS CALLED TO NOTIFY OF POC, INSIST THAT PT IS NOT RELEASED FROM THE HOSPITAL WITHOUT GI CONSULT, CALL PLACED TO [facility], AND PCP, MESSAGE LEFT AWAITING CALL BACK.
[2019-02-13 14:12] VITALS: BP_SYST 140
--- NOTE | 2019-02-13 14:44 | NUR ---
CONSULTATION PAGED/CALLED Reason for Consultation: COLITIS Person Who was Notified: VERONIQUE Consulting Physician: ANASTACIA Director Of Plant Operations Specialty: REPAIRER HAIRSPRING Ordering Physician: DR. GUTIERREZ
[2019-02-13 16:24] VITALS: BP_SYST 113
--- NOTE | 2019-02-13 17:15 | NUR ---
VISIT: AT BEDSIDE FOR ASSESSMENT OF PT, RECTAL EXAMINE DONE AT BEDSIDE, DISIMPACTION OF PT IMPLEMENTED BY [facility], TOLERATED WELL BY PT, WILL CON'T WITH POC.
--- NOTE | 2019-02-13 18:00 | NUR ---
END OF SHIFT: PT REMAINS STABLE, AT BEDSIDE TO ASSIST WITH MEAL, TOLERATING DIET, NO INDICATION OF PAIN OR DISCOMFORT, WILL CON'T TO MONITOR AND ENDORSE TO NEXT SHIFT.
[2019-02-13] MEDS ORDERED: DOCUSATE SODIUM 100 MG CAPSULE PO SCH ×3 (18:15→20:30)
[2019-02-13] MEDS ORDERED: POLYETHYLENE GLYCOL 3350, 17 GM/ POWD.PACK PO SCH ×2 (18:15→20:30)
[2019-02-13 19:55] VITALS: BP_SYST 123
--- NOTE | 2019-02-13 21:40 | NUR ---
NOTE SCHEDULED NIGHT TIME MEDICATIONS ARE GIVEN AT THIS TIME, PATIENT TOLERATED WELL. PATIENT IS RESTING IN BED, STABLE, NO SIGNS OF RESPIRATORY DISTRESS. CALL LIGHT IS WITHIN REACH. BED IS LOCKED, ALARMED, AND AT THE LOWEST LEVEL.
--- NOTE | 2019-02-13 23:40 | NUR ---
NOTE PATIENT IS SLEEPING, STABLE, NO SIGNS OF RESPIRATORY DISTRESS. CALL LIGHT IS WITHIN REACH. BED IS LOCKED, ALARMED, AND AT THE LOWEST LEVEL.
[2019-02-14 00:26] VITALS: BP_SYST 132
--- NOTE | 2019-02-14 01:40 | NUR ---
NOTE PATIENT IS SLEEPING, STABLE, NO SIGNS OF RESPIRATORY DISTRESS. CALL LIGHT IS WITHIN REACH. BED IS LOCKED, ALARMED, AND AT THE LOWEST LEVEL.
[2019-02-14] MEDS: ALBUTEROL SULFATE 0.083% 2.5 MG/3 ML VIAL.NEB INH SCH ×3 (03:00→11:49)
--- NOTE | 2019-02-14 03:40 | NUR ---
NOTE PATIENT IS SLEEPING, STABLE, NO SIGNS OF RESPIRATORY DISTRESS. CALL LIGHT IS WITHIN REACH. BED IS LOCKED, ALARMED, AND AT THE LOWEST LEVEL.
--- NOTE | 2019-02-14 05:40 | NUR ---
NOTE PATIENT IS SLEEPING, STABLE, NO SIGNS OF RESPIRATORY DISTRESS. CALL LIGHT IS WITHIN REACH. BED IS LOCKED, ALARMED, AND AT THE LOWEST LEVEL.
--- NOTE | 2019-02-14 06:15 | NUR ---
TAP WATER ENEMA TAP WATER ENEMA GIVEN. PATIENT TOLERATED WELL.
[2019-02-14] MEDS: metroNIDAZOLE 500 MG TABLET PO SCH (06:43)
--- NOTE | 2019-02-14 06:45 | NUR ---
CLOSING NOTE PATIENT DID NOT HAVE ANY BOWEL MOVEMENTS UNTIL TAP WATER ENEMA WAS GIVEN THIS MORNING. HE VERBALIZES NO ABDOMINAL DISCOMFORT. AT THIS TIME, PATIENT IS RESTING IN BED, STABLE, NO SIGNS OF RESPIRATORY DISTRESS. BED IS LOCKED, ALARMED, AND AT THE LOWEST LEVEL. FALL AND SAFETY PRECAUTIONS HAVE BEEN IN PLACE THROUGHOUT THE SHIFT. WILL CONTINUE TO MONITOR UNTIL SHIFT REPORT IS GIVEN AT BEDSIDE TO AM NURSE.
--- NOTE | 2019-02-14 07:45 | NUR ---
OPENING NOTES: RECEIVED PATIENT FROM LACQUER SHADER. PATIENT IS AWAKE LAYING DOWN IN BED. NO SIGNS OF DISTRESS OR SHORTNESS OF BREATH NOTED. PATIENT DENIES ANY PAIN AT THE MOMENT. IV SITE PATENT WITH NO SIGNS OF INFILTRATION. PATIENT IS TOLERATING ROOM AIR. SAFETY, FALL, AND ASPIRATION PRECAUTIONS ARE IN PLACE. BED LOCKED IN LOWEST POSITION WITH CALL LIGHT IN REACH. WILL CONTINUE TO MONITOR PATIENT FOR ANY CHANGES. Addendum: 02/14/19 at 0921 by Torie Suarez RN PT AAOX1-2, VERBAL, CONFUSED AT TIMES. PROVIDED PT WITH REALITY ORIENTATION.
[2019-02-14 08:08] VITALS: BP_SYST 116
[2019-02-14] MEDS: AZITHROMYCIN 250 MG TABLET PO SCH (08:19)
[2019-02-14] MEDS: amLODIPine BESYLATE 5 MG TABLET PO SCH (08:19)
[2019-02-14] MEDS: APIXABAN 2.5 MG TABLET PO SCH (08:20)
[2019-02-14] MEDS ORDERED: POLYETHYLENE GLYCOL 3350, 17 GM/ POWD.PACK PO SCH (09:00)
[2019-02-14] MEDS ORDERED: DOCUSATE SODIUM 100 MG CAPSULE PO SCH (09:00)
--- NOTE | 2019-02-14 09:15 | NUR ---
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
--- NOTE | 2019-02-14 10:20 | NUR ---
RN ROUNDS: PATIENT IS SLEEPING IN BED. NO SIGNS OF DISTRESS OR SHORTNESS OF BREATH NOTED. PATIENT DENIES ANY PAIN AT THE MOMENT. IV SITE IS PATENT WITH NO SIGNS OF INFILTRATION. BED LOCKED IN LOWEST POSITION WITH CALL LIGHT IN REACH. SAFETY, FALL, AND ASPIRATION PRECAUTIONS ARE IN PLACE. WILL CONTINUE TO MONITOR PATIENT FOR ANY CHANGES.
[2019-02-14 11:20] VITALS: BP_SYST 118
[2019-02-14] MEDS: cefTRIAXone 1 GM IVPB PREMIX 50 ML IV SCH (11:27)
--- NOTE | 2019-02-14 12:20 | NUR ---
RN ROUNDS: PATIENT IS LAYING DOWN ASLEEP IN BED. NO SIGNS OF DISTRESS OR SHORTNESS OF BREATH NOTED. IV SITE IS PATENT WITH NO SIGNS OF INFILTRATION. PATIENT DENIES ANY PAIN AT THE MOMENT. SAFETY, FALL, AND ASPIRATION PRECAUTIONS ARE IN PLACE. BED LOCKED IN LOWEST POSITION WITH CALL LIGHT IN REACH. WILL CONTINUE TO MONITOR PATIENT FOR ANY CHANGES.
[2019-02-14] MEDS ORDERED: CEPH250C PO (13:31)
[2019-02-14 14:18] VITALS: BP_SYST 113
--- NOTE | 2019-02-14 14:40 | NUR ---
D/C Patient Patient and given medication reconciliation form and D/C instructions. Exit Care provided to patient and . Patient and verbalized understanding. MD discussed with patient the results and treatment provided. Patient picked up by a gurney arranged by . Patient in stable condition, ID band removed. IV catheter removed, intact and dressing applied, no active bleeding. Rx of Keflex, Colace, Flagyl, and Proventil given. Patient educated on pain management. All belongings sent with patient.
--- NOTE | 2019-02-15 16:38 | NUR ---
DISCHARGE FOLLOW UP PHONE CALL / ESPERANZA TECH PHONED PATIENT, . BLAISE PATEL ANSWERED PHONE. PATIENT IS AT [facility] AND IS FEELING OK. SHE STATED THAT HE HAS FILLED HIS PRESCRIPTION AND TOOK THEM INSTRUCTED. HE HAS NO QUESTIONS ABOUT HIS D/C INSTRUCTIONS. CALLED PCP AND IS WAITING FOR HER TO GO SEE HIM AT THE [facility]. PATIENT'S IS TRYING TO GET A HOLD OF GI DOCTOR DR. SANCHEZ SHE WANTS TO SPEAK TO HIM ABOUT DIETING AND A COUPLE OF OTHER QUESTIONS, WILL FWD THIS MESSAGE TO IT PROGRAM MANAGER. HE HAS NO QUESTIONS OR CONCERNS. HE WILL CALL HOSPITAL IF HE HAS QUESTIONS IN THE FUTURE.
== END 2019-02-14 14:45 | disposition home or self-care (01) | DRG 202 ==
LOC: SED 16:54 → SMU 19:08
PROVIDERS: ADMIT Internal Medicine; ATTEND Internal Medicine
DX: J98.01 Acute bronchospasm (principal); N39.0 Urinary tract infection, site not specified; E87.2 Acidosis; K56.41 Fecal impaction; E87.6 Hypokalemia; D64.9 Anemia, unspecified; K52.9 Noninfective gastroenteritis and colitis, unspecified; E78.5 Hyperlipidemia, unspecified; F02.80 Dementia in other diseases classified elsewhere, unspecified severity, without behavioral disturbance, psychotic disturbance, mood disturbance, and anxiety; G30.9 Alzheimer's disease, unspecified; I10 Essential (primary) hypertension; J44.9 Chronic obstructive pulmonary disease, unspecified; N40.0 Benign prostatic hyperplasia without lower urinary tract symptoms; Z87.440 Personal history of urinary (tract) infections; F32.9 Major depressive disorder, single episode, unspecified; I48.91 Unspecified atrial fibrillation; R91.1 Solitary pulmonary nodule; J84.10 Pulmonary fibrosis, unspecified
CPT/HCPCS: 36415; 71045; 71250-TC; 80053; 81000-TC; 82378; 83605; 84484; 85025; 85610-TC; 85730-TC; 87040-TC; 87081; 87086; 93005; 94640; 94760; 96365; 96366; 96367; 99285; J0696; J3370; J3490; J7030; J7060; J7613; Q0144

== ENCOUNTER 2019-03-29 14:49 | Inpatient (IN) | payer OTHER ==
[~2019-03-29] VITALS: Ht 198.1 cm; Wt 80.7 kg
[~2019-03-29 14:49] MED LIST changes: +ALBU8.5H8 INH; +APIX5TAB4 PO; +CEPH250C PO; +DOCU-144 PO; +DONE10TA37 PO; +ESCI10TA PO; +Lomotil PO; +METR500T PO
[2019-03-29 15:01] VITALS: BP_SYST 126
[2019-03-29] MEDS ORDERED: ESCI20TA PO (15:26)
[2019-03-29] MEDS ORDERED: LOM2.5 PO (15:26)
[2019-03-29 15:43] LABS: BASOPHILS % (AUTO) 0.5 % (0.0-2.0); EOSINOPHILS # (AUTO) 0.2 K/uL (0.0-0.4); EOSINOPHILS % (AUTO) 2.6 % (0.0-4.0); HEMATOCRIT 40.3 % (36-54); HEMOGLOBIN 13.4 g/dL (14.0-18.0); LYMPHOCYTES # (AUTO) 3.3 K/uL (1.0-5.5); LYMPHOCYTES % (AUTO) 40.2 % (20.5-51.5); MEAN CORPUSCULAR HEMOGLOBIN 29 pg (27-31); MEAN CORPUSCULAR HGB CONC 33 % (32-36); MEAN CORPUSCULAR VOLUME 88 fL (79.0-98.0); MONOCYTES # (AUTO) 0.9 K/uL (0.0-1.0); MONOCYTES % (AUTO) 10.7 % (1.7-9.3); NEUTROPHILS # (AUTO) 3.8 K/uL (1.8-7.7); PLATELET COUNT (AUTO) 218 K/uL (130-430); RED BLOOD CELL COUNT(AUTO) 4.57 MIL/uL (4.2-6.2); RED CELL DISTRIBUTION WIDTH 14.4 % (9.0-15.0); WHITE BLOOD COUNT (AUTO) 8.3 K/uL (4.8-10.8)
[2019-03-29 15:49] LABS: INR 1.2 (0.80-1.20); PROTHROMBIN TIME 12.3 SECS (9.5-12.5)
[2019-03-29 16:15] LABS: ANION GAP 8 (5-15); CALCIUM 9.7 mg/dL (8.4-11.0); CHLORIDE 109 mmol/L (98-107); GLUCOSE 122 mg/dL (70-99); POTASSIUM 4.1 mmol/L (3.5-5.1); SODIUM SERUM 142 mmol/L (136-145); UREA NITROGEN, BLOOD 30 mg/dL (8-21)
[2019-03-29 16:20] LABS: ALANINE AMINOTRANSFERASE 17 U/L (12-78); ALBUMIN 3.5 g/dL (3.4-4.8); ASPARTATE AMINOTRANSFERASE 18 U/L (10-37); TOTAL BILIRUBIN 0.4 mg/dL (0.0-1.0)
[2019-03-29 16:45] LABS: CLARITY/URINE CLOUDY (CLEAR); COLOR,URINE YELLOW (YELLOW)
[2019-03-29 16:46] LABS: BILIRUBIN,URINE NEGATIVE (NEGATIVE); BLOOD, URINE 1+ (NEGATIVE); GLUCOSE,URINE NEGATIVE (NEGATIVE); KETONES,URINE NEGATIVE (NEGATIVE); LEUKOCYTE ESTERASE ,URINE 2+ (NEGATIVE); NITRITE, URINE POSITIVE (NEGATIVE); PROTEIN URINE NEGATIVE (NEGATIVE)
[2019-03-29 16:51] LABS: BACTERIA,URINE MODERATE /HPF (None Seen); RBC,URINE 20-50 /HPF (0-3); TRICHOMONAS,URINE None Seen /HPF (None Seen); WBC,URINE >100 /HPF (0-3); YEAST,URINE None Seen /HPF (None Seen)
[2019-03-29 16:52] LABS: MUCUS,URINE 2+ /LPF (None Seen)
[2019-03-29] MEDS ORDERED: PIPERACILLIN/TAZO 3.375 GM in NS 50 ML IV ONE (17:00)
[2019-03-29] MEDS ORDERED: PIPERACILLIN/TAZOBACTAM 3.375 GM/VIAL (ZOSYN) IV ONE ×2 (17:49→23:06)
[2019-03-29 18:10] VITALS: BP_SYST 130
[2019-03-29] MEDS ORDERED: ACETAMINOPHEN 325 MG TABLET PO PRN (21:45)
[2019-03-29] MEDS ORDERED: DIPHENOXYLATE HCL/ATROP SULF 2.5 MG TAB PO PRN (21:45)
[2019-03-29 22:03] VITALS: BP_SYST 130
[2019-03-29] MEDS: PIPERACILLIN/TAZO 3.375 GM in NS 50 ML IV SCH (23:06)
[2019-03-30 02:13] VITALS: BP_SYST 118
[2019-03-30] MEDS: PIPERACILLIN/TAZO 3.375 GM in NS 50 ML IV SCH (06:48)
[2019-03-30 07:14] LABS: BASOPHILS % (AUTO) 0.4 % (0.0-2.0); EOSINOPHILS # (AUTO) 0.3 K/uL (0.0-0.4); EOSINOPHILS % (AUTO) 4.8 % (0.0-4.0); HEMATOCRIT 38.2 % (36-54); HEMOGLOBIN 12.6 g/dL (14.0-18.0); LYMPHOCYTES # (AUTO) 3.1 K/uL (1.0-5.5); LYMPHOCYTES % (AUTO) 49.9 % (20.5-51.5); MEAN CORPUSCULAR HEMOGLOBIN 29 pg (27-31); MEAN CORPUSCULAR HGB CONC 33 % (32-36); MEAN CORPUSCULAR VOLUME 89 fL (79.0-98.0); MONOCYTES # (AUTO) 0.7 K/uL (0.0-1.0); MONOCYTES % (AUTO) 11.1 % (1.7-9.3); NEUTROPHILS # (AUTO) 2.1 K/uL (1.8-7.7); NEUTROPHILS % (AUTO) 33.8 % (40.0-70.0); PLATELET COUNT (AUTO) 184 K/uL (130-430); RED CELL DISTRIBUTION WIDTH 14.5 % (9.0-15.0); WHITE BLOOD COUNT (AUTO) 6.3 K/uL (4.8-10.8)
[2019-03-30 07:44] LABS: ALANINE AMINOTRANSFERASE 17 U/L (12-78); ALBUMIN 3.3 g/dL (3.4-4.8); ANION GAP 8 (5-15); ASPARTATE AMINOTRANSFERASE 17 U/L (10-37); CALCIUM 9.3 mg/dL (8.4-11.0); CHLORIDE 111 mmol/L (98-107); CREATININE 1.07 mg/dL (0.55-1.30); GLUCOSE 96 mg/dL (70-99); POTASSIUM 3.8 mmol/L (3.5-5.1); SODIUM SERUM 145 mmol/L (136-145); TOTAL BILIRUBIN 0.7 mg/dL (0.0-1.0); UREA NITROGEN, BLOOD 25 mg/dL (8-21)
[2019-03-30 08:10] VITALS: BP_SYST 130
[2019-03-30] MEDS: ALBUTEROL SULFATE 0.083% 2.5 MG/3 ML VIAL.NEB INH SCH ×2 (08:19→20:41)
[2019-03-30] MEDS: ATORVASTATIN 10 MG TABLET PO SCH (09:13)
[2019-03-30] MEDS: PANTOPRAZOLE SODIUM 40 MG TAB PO SCH (09:14)
[2019-03-30] MEDS: CITALOPRAM HYDROBROMIDE 20 MG TABLET PO SCH (09:14)
[2019-03-30] MEDS: APIXABAN 2.5 MG TABLET PO SCH ×2 (09:15→20:19)
[2019-03-30] MEDS ORDERED: GENTAMICIN 80 mg/100 mL NS 100 ML IV ONE (11:15)
[2019-03-30 11:28] VITALS: BP_SYST 118
[2019-03-30] MEDS ORDERED: PIPERACILLIN/TAZO 3.375/DEX-IS 50 ML IV SCH (12:00)
[2019-03-30 15:28] VITALS: BP_SYST 135
[2019-03-30 20:00] VITALS: BP_SYST 127
[2019-03-30] MEDS: CEFEPIME 1 GM in D5W 50 ML IV SCH (20:18)
[2019-03-31 01:05] VITALS: BP_SYST 136
[2019-03-31 08:00] VITALS: BP_SYST 128
[2019-03-31] MEDS: ALBUTEROL SULFATE 0.083% 2.5 MG/3 ML VIAL.NEB INH SCH ×2 (09:00→15:00)
[2019-03-31] MEDS: CEFEPIME 1 GM in D5W 50 ML IV SCH (09:15)
[2019-03-31] MEDS: PANTOPRAZOLE SODIUM 40 MG TAB PO SCH (09:16)
[2019-03-31] MEDS: ATORVASTATIN 10 MG TABLET PO SCH (09:16)
[2019-03-31] MEDS: CITALOPRAM HYDROBROMIDE 20 MG TABLET PO SCH (09:16)
[2019-03-31] MEDS: APIXABAN 2.5 MG TABLET PO SCH (09:17)
[2019-03-31 12:59] VITALS: BP_SYST 133
[2019-03-31 17:19] VITALS: BP_SYST 133
[2019-03-31] MEDS ORDERED: CEFE1FRO IV (17:27)
[2019-03-31 18:29] VITALS: BP_SYST 115
== END 2019-03-31 19:17 | DRG 690 ==
LOC: SED 14:49 → SMU 17:44
PROVIDERS: ADMIT Internal Medicine Hospice and Palliative Medicine; ATTEND Internal Medicine Hospice and Palliative Medicine
DX: N39.0 Urinary tract infection, site not specified (principal); F03.90 Unspecified dementia, unspecified severity, without behavioral disturbance, psychotic disturbance, mood disturbance, and anxiety; B96.5 Pseudomonas (aeruginosa) (mallei) (pseudomallei) as the cause of diseases classified elsewhere; E78.5 Hyperlipidemia, unspecified; F32.9 Major depressive disorder, single episode, unspecified; I10 Essential (primary) hypertension; J44.9 Chronic obstructive pulmonary disease, unspecified; N41.1 Chronic prostatitis; N40.1 Benign prostatic hyperplasia with lower urinary tract symptoms; E86.0 Dehydration
CPT/HCPCS: 36415; 71045; 76770; 80053; 81000-TC; 83605; 84484; 85025; 85610-TC; 85730-TC; 87040-TC; 87086; 87186-TC; 93005; 94760; 96365; 99285; J0692; J1580; J2543; J7060; J7613